=== PATIENT | male | born 1975 | race Caucasian/White ===

== ENCOUNTER 2018-03-11 13:53 | Emergency (ER) | payer OTHER ==
--- NOTE | 2018-03-11 14:33 | ED PDOC ---
Lower Extremity Pain/Injury Time Seen by Provider: 03/11/18 14:15 Chief Complaint (Nursing): Back Pain Chief Complaint (Provider): Back Pain History Per: Patient History/Exam Limitations: no limitations Onset/Duration Of Symptoms: Days (x 7 days) Current Symptoms Are (Timing): Still Present Additional Complaint(s): 43 y/o male presents to the ED complaining of burning by heel of the left foot x 1 week. Reports that symptoms started after lifting heavy objects at work. Also reports mild back pain and numbness in left thigh. Patient has been seen in the past for similar symptoms when he had back pain and was told that he has herniated disc. States taking [employer] without relief. denies any further medical complaints. PMD: none Past Medical History Reviewed: Historical Data, Nursing Documentation, Vital Signs Vital Signs: Last Vital Signs Temp 98.0 F 03/11/18 14:04 Pulse 62 03/11/18 14:04 Resp 16 03/11/18 14:04 BP 121/71 03/11/18 14:04 Pulse Ox 98 03/11/18 14:04 - Medical History Other PMH: Herniated disc - Family History Family History: States: No Known Family Hx, Unknown Family Hx - Home Medications Home Medications: Ambulatory Orders Medication Instructions Recorded diaZEpam [Valium] 1 tab PO Q8 PRN #10 tab 12/27/14 Cyclobenzaprine [Cyclobenzaprine 10 mg PO Q8 PRN #30 tab 09/10/16 HCl] Naproxen [Naprosyn] 500 mg PO BID PRN #30 tab 09/10/16 Naproxen 375 mg PO Q8 PRN #21 tablet 03/11/18 - Allergies Allergies/Adverse Reactions: Allergies Allergy/AdvReac Type Severity Reaction Status Date / Time No Known Allergies Allergy Verified 03/11/18 14:04 Review of Systems ROS Statement: Except As Marked, All Systems Reviewed And Found Negative (As per HPI, otherwise negative) Musculoskeletal: Positive for: Back Pain (mild), Foot Pain (burning of left heel ), Other (numbness in thigh) Physical Exam - Reviewed Nursing Documentation Reviewed: Yes Vital Signs Reviewed: Yes - Physical Exam Appears: Positive for: Non-toxic, No Acute Distress Head Exam: Positive for: ATRAUMATIC Skin: Positive for: Normal Color, Warm, Dry. Negative for: Rash (no obvious rash or infection noted in left foot) Eye Exam: Positive for: Normal appearance Neck: Positive for: Normal Back: Negative for: L CVA Tenderness, R CVA Tenderness, Vertebral Tenderness Extremity: Positive for: Other (5/5 dorsal plantar function in left foot) Neurologic/Psych: Positive for: Alert, electrotyper helper II-XII, Oriented, Other (good sensation in left foot) - ECG O2 Sat by Pulse Oximetry: 98 (RA) Pulse Ox Interpretation: Normal Medical Decision Making Medical Decision Making: Time: 14:15 Initial Impression: Left heel pain Plan: Ketorolac 30mg IM accucheck 83 Reevaluation Scribe Attestation: Documented by Yuridia Chris acting as a scribe for Susanna Chris MD. Scribe Attestation: All medical record entries made by the Scribe were at my direction and personally dictated by me. I have reviewed the chart and agree that the record accurately reflects my personal performance of the history, physical exam, medical decision making, and the department course for this patient. I have also personally directed, reviewed, and agree with the discharge instructions and disposition. Disposition - Clinical Impression Clinical Impression: Sciatica - Patient ED Disposition Is Patient to be Admitted: No - Disposition Referrals: [facility] [Outside] Disposition: Routine/Home Disposition Time: 15:51 Condition: FAIR Prescriptions: Naproxen 375 mg PO Q8 PRN #21 tablet PRN Reason: Pain, Moderate (4-7) Instructions: Sciatica (DC) Forms: [facility] ED School/Work Excuse Print Language: TONGAN
[2018-03-11 15:53] VITALS: BP 122/73; PULSE 81; RESP 18; TEMP 98
[2018-03-11 21:39] VITALS: O2SAT 98
== END 2018-03-11 15:52 | disposition home or self-care (01) ==
LOC: H.ER 13:53
DX: M54.30 Sciatica, unspecified side (principal)
CPT/HCPCS: 82948; 96372; 99283; J1885

== ENCOUNTER 2019-02-23 12:54 | Emergency (ER) | payer SELFPAY ==
[2019-02-23 13:03] VITALS: BP 123/69; RESP 16; TEMP 97
--- NOTE | 2019-02-23 13:43 | ED PDOC ---
HPI: Back Time Seen by Provider: 02/23/19 13:32 Chief Complaint (Nursing): Back Pain Chief Complaint (Provider): Back pain History Per: Patient History/Exam Limitations: no limitations Onset/Duration Of Symptoms: Days (2x years. worse for 1-2x days) Current Symptoms Are (Timing): Still Present Severity: Moderate Additional Complaint(s): 44 year old male with no pertinent past medical history presents to the ED requesting PPD vaccination. Patient advised that PPD vaccinations are not given in the ED. Patient states that because he is here, he has noticed that the left lower back pain that he has had for several years, has worsened in the past 1-2x days. Patient states that the pain radiates down to his left heel. Patient states that the pain is bareable, but would like medications to go home with. 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 Patient denies having numbness, weakness, loss of control of bowels or urine, fevers, urinary complaints, nausea, vomiting, recent injuries, taking medications for the pain prior to arrival. PMD: None provided. Past Medical History Reviewed: Historical Data, Nursing Documentation, Vital Signs Vital Signs: Last Vital Signs Temp 97.0 F L 02/23/19 13:00 Pulse 56 L 02/23/19 13:00 Resp 16 02/23/19 13:00 BP 123/69 02/23/19 13:00 Pulse Ox 97 02/23/19 13:00 NICOLLE Report Viewed: Yes Primary Care Provider: CHIP RAMIRES - Medical History PMH: No Chronic Diseases - Family History Family History: States: No Known Family Hx - Social History Current smoker - smoking cessation education provided: No Alcohol: None Drugs: Denies - Home Medications Home Medications: Ambulatory Orders Medication Instructions Recorded diaZEpam [Valium] 1 tab PO Q8 PRN #10 tab 12/27/14 Cyclobenzaprine [Cyclobenzaprine 10 mg PO Q8 PRN #30 tab 09/10/16 HCl] Naproxen [Naprosyn] 500 mg PO BID PRN #30 tab 09/10/16 Naproxen 375 mg PO Q8 PRN #21 tablet 03/11/18 Naproxen 500 mg PO Q12H PRN #30 tablet 02/23/19 - Allergies Allergies/Adverse Reactions: Allergies Allergy/AdvReac Type Severity Reaction Status Date / Time No Known Allergies Allergy Verified 02/23/19 13:00 Review of Systems ROS Statement: Except As Marked, All Systems Reviewed And Found Negative Constitutional: Negative for: Fever Gastrointestinal: Negative for: Nausea, Vomiting, Other (loss of control of bowels) Genitourinary Male: Negative for: Dysuria, Frequency, Incontinence Musculoskeletal: Positive for: Back Pain (left lower back pain radiates down to the left heel) Neurological: Negative for: Weakness, Numbness Physical Exam - Reviewed Nursing Documentation Reviewed: Yes Vital Signs Reviewed: Yes - Physical Exam Appears: Positive for: Well, Non-toxic, No Acute Distress Head Exam: Positive for: ATRAUMATIC, NORMOCEPHALIC Skin: Positive for: Normal Color ((-) skin breakdown), Warm, Dry. Negative for: Rash (to left lower back) Pulses-Dorsalis Pedis (L): 2+ Pulses-Dorsalis Pedis (R): 2+ Back: Positive for: Other ((+) point tenderness to left lower back. Left leg raise: pain reproducible to left lower back. ) Neurological/Psych: Positive for: Awake, Alert, Oriented (3x), Gait (steady, no signs of difficulty or pain) - ECG O2 Sat by Pulse Oximetry: 97 (RA) Pulse Ox Interpretation: Normal Medical Decision Making Medical Decision Makin:32 Initial impression: 44 year old male with back pain Initial plan: * toradol 30 mg IM Patient stable for discharge home with an Rx for naproxen. Patient given a referral to the [facility] for further medical issues and PPD vaccination. Patient given return instructions and precautions. Patient states he understands and agrees with plan. Scribe Attestation: Documented by Mini Estrada, acting as a scribe for Cintia Salazar VP [employer]. Provider Scribe Attestation: All medical record entries made by the Scribe were at my direction and p ersonally dictated by me. I have reviewed the chart and agree that the record accurately reflects my personal performance of the history, physical exam, medical decision making, and the department course for this patient. I have also personally directed, reviewed, and agree with the discharge instructions and disposition. Disposition - Clinical Impression Clinical Impression: Back pain of lumbar region with sciatica - Patient ED Disposition Is Patient to be Admitted: No Counseled Patient/Family Regarding: Diagnosis, Rx Given - Disposition Referrals: [facility] [Outside] Disposition: Routine/Home Disposition Time: 13:30 Condition: GOOD Prescriptions: Naproxen 500 mg PO Q12H PRN #30 tablet PRN Reason: Pain, Moderate (4-7) Instructions: Sciatica, Back Flexion Strengthening Exercises Print Language: COMORAN - POA Present On Arrival: None
[2019-02-23 13:52] VITALS: PULSE 62
[2019-02-23 13:54] VITALS: O2SAT 97
== END 2019-02-23 13:43 | disposition home or self-care (01) ==
LOC: H.ER 12:54
DX: M54.32 Sciatica, left side (principal)
CPT/HCPCS: 96372; 99283; J1885